=== PATIENT | female | born 2000 | race Caucasian/White ===

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

== ENCOUNTER 2020-11-11 01:24 | Emergency (ER) | payer MEDICAID ==
[~2020-11-11] VITALS: Ht 152.4 cm; Wt 54.9 kg
[2020-11-11 01:27] VITALS: Ht 152.4 cm; Wt 54.9 kg
[2020-11-11 06:44] VITALS: BP 94/62
== END 2020-11-11 06:38 | disposition home or self-care (01) ==
LOC: ED 01:24
DX: S61.217A Laceration without foreign body of left little finger without damage to nail, initial encounter (principal); W22.8XXA Striking against or struck by other objects, initial encounter; Y93.89 Activity, other specified; Y92.89 Other specified places as the place of occurrence of the external cause; Y99.8 Other external cause status
CPT/HCPCS: 90715; J2001

== ENCOUNTER 2020-11-16 21:11 | Emergency (ER) | payer OTHER ==
[~2020-11-16] VITALS: Ht 152.4 cm; Wt 54.6 kg
[2020-11-16 21:23] VITALS: Ht 152.4 cm; Wt 54.6 kg
[2020-11-16 21:56] VITALS: BP 121/87
== END 2020-11-16 21:56 | disposition home or self-care (01) ==
LOC: ED 21:11
DX: S61.211D Laceration without foreign body of left index finger without damage to nail, subsequent encounter (principal); X58.XXXD Exposure to other specified factors, subsequent encounter

== ENCOUNTER 2020-11-20 20:04 | Emergency (ER) | payer OTHER ==
[~2020-11-20] VITALS: Ht 152.4 cm; Wt 54.0 kg
[2020-11-20 20:07] VITALS: Ht 152.4 cm; Wt 54.0 kg
[2020-11-20 20:54] VITALS: BP 141/54
== END 2020-11-20 20:54 | disposition home or self-care (01) ==
LOC: ED 20:04
DX: S61.211D Laceration without foreign body of left index finger without damage to nail, subsequent encounter (principal); W25.XXXD Contact with sharp glass, subsequent encounter